=== PATIENT | female | born 1960 | race Two or more races ===

== ENCOUNTER → 2017-02-08 | Outpatient (CLI) | payer OTHER ==
[2016-09-14 08:40] VITALS: BP 140/68
[~2017-02-08] MED LIST: CYCL10TA2 PO; NAPR250T2 PO
--- NOTE | 2017-02-08 10:00 | RAD ---
DATE: 02/08/2017 EXAM: DIGITAL SCREEN BILAT W/CAD HISTORY: Routine screening COMPARISON: 01/31/2016 This study was interpreted with the benefit of Computerized Aided Detection (CAD). FINDINGS: There are scattered fibroglandular densities in the breasts. An unchanged cluster of small lymph node type densities is again noted in the anterolateral aspect of the right breast. No new or enlarging breast densities are seen. Minimal benign type calcification is present. No suspicious microcalcifications have developed. IMPRESSION: Stable mammograms without evidence of malignancy. BI-RADS CATEGORY: 2 BENIGN FINDING(S) RECOMMENDED FOLLOW-UP: 12M 12 MONTH FOLLOW-UP PQRS compliance statement: Patient information was entered into a reminder system with a target due date for the next mammogram. Mammography is a sensitive method for finding small breast cancers, but it does not detect them all and is not a substitute for careful clinical examination. A negative mammogram does not negate a clinically suspicious finding and should not result in delay in biopsying a clinically suspicious abnormality. "Our facility is accredited by the [employer] Mammography Program."
== END | disposition home or self-care (01) ==
LOC: MAMMO 08:58
PROVIDERS: ATTEND Internal Medicine
DX: Z12.31 Encounter for screening mammogram for malignant neoplasm of breast (principal)
CPT/HCPCS: G0202; 77067

== ENCOUNTER → 2017-04-22 | Outpatient (CLI) | payer OTHER ==
[2016-09-14 08:40] VITALS: BP 140/68
--- NOTE | 2017-04-22 10:11 | RAD ---
Abdominal ultrasound, 04/22/2017: History: Elevated liver function test The gallbladder is within normal limits in size. There is no sonographic evidence of cholelithiasis. The gallbladder villarreal are not thickened. No bile duct dilatation is seen. The liver is enlarged measuring 22 cm in craniocaudad extent. It demonstrates generalized increased echogenicity, most commonly due to fatty change. No hepatic mass is identified. The pancreas was largely obscured by overlying bowel. The spleen is of normal size. No renal abnormality is detected. The abdominal aorta is of normal caliber. There is atherosclerotic plaquing. The visualized portions of the inferior vena cava are unremarkable. No free fluid is evident in the abdomen. IMPRESSION: 1. Hepatomegaly with evidence of hepatic steatosis. 2. No acute abdominal abnormality is detected.
== END | disposition home or self-care (01) ==
LOC: US 06:18
PROVIDERS: ATTEND Internal Medicine
DX: K76.0 Fatty (change of) liver, not elsewhere classified (principal); R16.0 Hepatomegaly, not elsewhere classified; I10 Essential (primary) hypertension; E78.5 Hyperlipidemia, unspecified; E03.8 Other specified hypothyroidism
CPT/HCPCS: 76700

== ENCOUNTER 2017-06-25 06:42 | Outpatient (CLI) | payer OTHER ==
[2017-06-25] VITALS (11 sets, daily range): BP systolic 95–121; BP diastolic 60–77
[~2017-06-25] VITALS: Ht 157.5 cm; Wt 86.6 kg
[2017-06-25] MEDS ORDERED: VITA400C36 PO (07:14)
[2017-06-25] MEDS ORDERED: SIMV20TA3 PO (07:14)
[2017-06-25] MEDS ORDERED: LEVO25TA4 PO (07:14)
[2017-06-25] MEDS ORDERED: TRIA1TAB3 PO (07:14)
[2017-06-25 07:21] LABS: BASO # 0.1 x10^3/uL (0.0-0.2); BASO % 1 % (0-3); EOS % 4 % (0-3); HEMATOCRIT 42.9 % (36.0-47.0); HEMOGLOBIN 14.4 g/dL (12.0-15.5); LYMPH # 3.4 x10^3/uL (1.0-4.8); LYMPH % 33 % (24-48); MEAN CORPUSCULAR HEMOGLOBIN 30 pg (25-35); MEAN CORPUSCULAR HGB CONC 34 g/dL (31-37); MEAN CORPUSCULAR VOLUME 89 fL (79-100); MONO % 8 % (0-9); NEUT % 54 % (31-73); PLATELET COUNT 233 x10^3/uL (140-400); RED BLOOD COUNT 4.84 x10^6/uL (3.50-5.40); RED CELL DISTRIBUTION WIDTH 13.2 % (11.5-14.5); WHITE BLOOD COUNT 10.4 x10^3/uL (4.0-11.0)
[2017-06-25 07:30] LABS: PROTHROMBIN TIME PATIENT 12.2 SEC (11.7-14.0)
[2017-06-25] MEDS ORDERED: LIDOCAINE 1% / SOD BICARB 8.4% 20 ML VIAL. IJ ONE ×2 (07:50→08:45)
[2017-06-25] MEDS ORDERED: GELATIN SPONGE SIZE 12-7MM SPONGE. ONE (07:55)
[2017-06-25] MEDS ORDERED: fentaNYL PF VIAL 100 MCG/2 ML VIAL ONE (08:22)
[2017-06-25] MEDS ORDERED: MIDAZOLAM HCL/PF 2 MG/2 ML VIAL. ONE (08:22)
[2017-06-25] MEDS ORDERED: MIDAZOLAM HCL/PF 2 MG/2 ML VIAL. IV ONE (08:45)
[2017-06-25] MEDS ORDERED: fentaNYL PF VIAL 100 MCG/2 ML VIAL IV ONE (08:45)
--- NOTE | 2017-06-25 11:55 | RAD ---
Ultrasound-guided biopsy of the left hepatic lobe 06/25/2017 Indication: Hepatic steatosis Discussion: The risks and benefits of the procedure including limited to bleeding, including life-threatening bleeding, pneumothorax, and bowel injury were discussed the patient. Informed consent was obtained. The patient was brought to the interventional suite and placed in the supine position. A timeout procedure was performed. Ultrasound evaluation of the liver demonstrated a left hepatic lobe amenable percutaneous biopsy. 1% lidocaine without epinephrine was administered for local anesthesia to the skin and subcutaneous tissues. A 17-gauge guiding needle was advanced into the left hepatic lobe. 3 x 18-gauge core biopsy samples were obtained. Gelfoam embolization of the biopsy tract was performed prior to removal of the guiding needle. Annual pressures over several minutes. Repeat ultrasound performed demonstrating no hematoma or other complication. Patient tolerated the procedure well. Procedures performed under conscious sedation including continuous cardiopulmonary monitoring via a dedicated sedation nurse. Sedation time: 20 minutes Impression: Successful nontargeted, ultrasound-guided biopsy of the liver
== END 2017-06-25 11:00 | disposition home or self-care (01) ==
LOC: INTRAD 06:42
PROVIDERS: ATTEND Internal Medicine Gastroenterology
DX: K76.0 Fatty (change of) liver, not elsewhere classified (principal); E78.00 Pure hypercholesterolemia, unspecified; Z72.89 Other problems related to lifestyle
CPT/HCPCS: 36415; 47000; 76942; 85027; 85610; 99152; C1887; J2250; J3010; 99153

== ENCOUNTER → 2018-02-09 | Outpatient (CLI) | payer OTHER | END | disposition home or self-care (01) | LOC: MAMMO 09:49 | DX: Z12.31 Encounter for screening mammogram for malignant neoplasm of breast (principal) | CPT/HCPCS: 77067 ==

== ENCOUNTER → 2019-03-15 | Outpatient (CLI) | payer OTHER ==
[2017-06-25 10:22] VITALS: BP 104/65
[~2019-03-15] MED LIST changes: +LEVO25TA4 PO; -NAPR250T2 PO; +NAPR250T6 PO; +SIMV20TA3 PO; +TRIA1TAB3 PO; +VITA400C36 PO
--- NOTE | 2019-03-15 09:13 | RAD ---
DATE: 03/15/2019 EXAM: MAMMO BRIDGETTE SCREENING BILATERAL HISTORY: Routine screening COMPARISON: 02/09/2018 This study was interpreted with the benefit of Computerized Aided Detection (CAD). Breast Density: SCATTERED The breast parenchyma shows scattered fibroglandular densities. Breast parenchyma level B. FINDINGS: 2-D and 3-D tomosynthesis imaging was performed in CC and MLO projections. There is an unchanged cluster of 2 small intramammary lymph node type densities in the lateral aspect of the right breast. No new or enlarging breast densities are seen. No suspicious microcalcifications are evident. IMPRESSION: Stable mammograms without evidence of malignancy. BI-RADS CATEGORY: 2 BENIGN FINDING(S) RECOMMENDED FOLLOW-UP: 12M 12 MONTH FOLLOW-UP PQRS compliance statement: Patient information was entered into a reminder system with a target due date for the next mammogram. Mammography is a sensitive method for finding small breast cancers, but it does not detect them all and is not a substitute for careful clinical examination. A negative mammogram does not negate a clinically suspicious finding and should not result in delay in biopsying a clinically suspicious abnormality. "Our facility is accredited by the [employer] Mammography Program."
== END | disposition home or self-care (01) ==
LOC: MAMMO 08:04
PROVIDERS: ATTEND Internal Medicine
DX: Z12.31 Encounter for screening mammogram for malignant neoplasm of breast (principal)
CPT/HCPCS: 77063; 77067

== ENCOUNTER → 2019-08-24 | Outpatient (CLI) | payer OTHER ==
[2017-06-25 10:22] VITALS: BP 104/65
--- NOTE | 2019-08-24 12:00 | RAD ---
CHEST PA LATERAL History: Chest wall pain Comparison: 09/21/2009 frontal view of the chest. Findings: The cardiomediastinal silhouette is normal. Pulmonary vasculature is normal. The lungs are clear. No pleural effusion or pneumothorax is seen. There is no acute bone abnormality. IMPRESSION: No acute cardiopulmonary process. Electronically signed by: Hung Kuhn MD (08/24/2019 11:57 AM) [facility]
== END | disposition home or self-care (01) ==
LOC: RAD 10:58
PROVIDERS: ATTEND Internal Medicine
DX: R07.89 Other chest pain (principal)
CPT/HCPCS: 71046

== ENCOUNTER → 2019-09-07 | Outpatient (CLI) | payer OTHER ==
[2017-06-25 10:22] VITALS: BP 104/65
[~2019-09-07] MED LIST changes: +REGADENOSON 0.4 MG/5 ML DISP.SYRIN. IV ONE
--- NOTE | 2019-09-11 11:24 | RAD ---
MR#: [id number] Date of Study: 09/07/2019 Ordering Physician: KELSEA DUNBAR Referring Physician: LU SANTANA Tech: RT Rupesh Stovall) (N) APPROVED REPORT Test Type: Pharmacological Stress Nurse/Tech: Marisela BUSTAMANTE Test Indications: Chest Pain Cardiac History: See EMR Medications: See EMR Medical History: DM, X-smoker quit 5 yrs ago, See EMR Resting ECG: SB Resting Heart Rate: 55 bpm Resting Blood Pressure: 114/66mmHg Pretest Chest Pain: No chest pain Nurse/Tech Notes Lungs CTA, Heart tones regular. Consent: The procedure was explained to the patient in lay terms. Informed consent was witnessed. Bay eout was entered into [employer]. History and Stress Test performed by RT Rupesh Haley) (N) Pharm. Details Pharmacologic stress testing was performed using 0.4mg per 5ml of regadenoson given intravenously ove r 7-10 seconds. Stress Symptoms No chest pain or symptoms. POST EXERCISE Reason for Termination: Infusion complete Max HR: 88 bpm Max Blood Pressure: 114/63mmHg Blood Pressure response to exercise: Normal blood pressure response during stress. Heart Rate response to exercise: WNL Chest Pain: No. Arrhythmia: No. ST Change: No. INTERPRETATION Stress EKG Conclusion: Baseline EKG showed sinus rhythm. No ischemic changes at peak stress. No arr hythmias. Imaging Protocol IMAGE PROTOCOL: Rest Tc-99m/stress Tc-99m 1 day Rest: Stress: Viability: Radiopharm.Tc99m ThqwbtpotWy41c Sestamibi Mpfl17bQh 30.1mCi Duration 15min. 15min. Img Date 09/07/2019 09/07/2019 Inj-Img Bvmd58qpt. 60min. Rest Admin Site:IV - Left ForearmAdministrator:RT Rupesh Haley)(N) Stress Admin Site: IV - Left ForearmAdministrator: RT Rupesh Haley)(N) STRESS DATA End Diast. Vol.85.0mlLVEDV index BSA44.0ml End Syst. Vol.25.0mlLVESV index BSA13.0ml Myocardial Hnxl780.0gEject. Ikzyndbn68.0% Stress Scores Regional WT0.00Summed WT4.00 Regional WM0.00Summed WM0.00 Study quality was good. Left Ventricular size was Normal at Rest and Stress. Lung uptake was . Left Ventricular ejection fraction is 71%. The rest and stress images show normal perfusion, normal contraction and thickening. LV Perf. Quant 17 Seg. SSS2.00 17 Seg. SRS2.00 17 Seg. SDS1.00 Stress Defect Extent (% LAD)0.00Rest Defect Extent (% LAD)0.00Rev. Defect Extent (% LAD)0.00 Stress Defect Extent (% LCX) 0.00Rest Defect Extent (% LCX)7.50Rev. Defect Extent (% LCX)0.00 Stress Defect Extent (% RCA)0.00Rest Defect Extent (% RCA)0.00Rev. Defect Extent (% RCA)0.00 Stress Defect Extent (% TONNY)0.20Rest Defect Extent (% TONNY)1.70Rev. Defect Extent (% TONNY)0.00 Conclusion 1. Regadenoson cardioisotope stress test did not show any evidence of ischemia or infarct. 2. Normal left ventricular systolic function with ejection fraction calculated at 71%. 3. Low risk for cardiac events. Signed by : Kelsea Dunbar Electronically Approved : 09/07/2019 13:25:28
== END | disposition home or self-care (01) ==
LOC: NM 09:33
PROVIDERS: ATTEND Internal Medicine Cardiovascular Disease
DX: R07.9 Chest pain, unspecified (principal)
CPT/HCPCS: 78452; 93017; A9500; J2785

== ENCOUNTER → 2019-09-21 | Outpatient (CLI) | payer OTHER ==
[2017-06-25 10:22] VITALS: BP 104/65
[~2019-09-21] MED LIST changes: -REGADENOSON 0.4 MG/5 ML DISP.SYRIN. IV ONE
--- NOTE | 2019-09-21 12:23 | CARD ---
MR#: [id number] Date of Study: 09/21/2019 Ordering Physician: KELSEA DUNBAR, Referring Physician: Rocio SANTANA: Sera Olivarez APPROVED REPORT EXAM: Two-dimensional and M-mode echocardiogram with Doppler and color Doppler. Other Information Quality : Average INDICATION Chest Pain Murmur 2D DIMENSIONS RVDd3.0 (2.9-3.5cm)Left Atrium(2D)3.3 (1.6-4.0cm) IVSd0.8 (0.7-1.1cm)Aortic Root(2D)2.2 (2.0-3.7cm) LVDd4.6 (3.9-5.9cm)LVOT Diameter1.9 (1.8-2.4cm) PWd0.9 (0.7-1.1cm)LVDs2.6 (2.5-4.0cm) FS (%) 44.4 %SV73.9 ml Aortic Valve AoV Peak Guerrero.131.5cm/sAoV VTI30.0cm AO Peak GR.6.9mmHgLVOT Peak Guerrero.88.9cm/s AO Mean GR.4mmHgAVA (VMAX)1.86cm2 Mitral Valve MV E Dxerqgsv09.2cm/sMV E Peak Gr.4mmHg MV DECEL [id number] A Vwibfbls71.0cm/s MV E Mean Gr.1mmHgE/A Ratio2.3 Pulmonary Valve PV Peak Lgbnrxqm11.8cm/s Tricuspid Valve TR P. Qjzjwylz126oj/sRAP RZFBHPYM9hzZz TR Peak Gr.15xuByDCKN77rzUy Pulmonary Vein S1 Lohmkrcd16.8cm/sD2 Hfhlmekt92.1cm/s LEFT VENTRICLE The left ventricle is normal size. There is normal left ventricular wall thickness. The left ventricu lar systolic function is normal and the ejection fraction is within normal range. The Ejection Fracti on is 60-65%. There is normal LV segmental wall motion. The left ventricular diastolic function and f illing is normal for age. RIGHT VENTRICLE The right ventricle is normal size. There is normal right ventricular wall thickness. The right ventr icular systolic function is normal. ATRIA The left atrium size is normal. The right atrium size is normal. The interatrial septum is borderline aneurysmal. AORTIC VALVE The aortic valve is calcified but opens well. The aortic valve is normal in structure and function. D oppler and Color Flow revealed no significant aortic regurgitation. There is no significant aortic va lvular stenosis. MITRAL VALVE The mitral valve is thickened but opens well. There is no evidence of mitral valve prolapse. There is no mitral valve stenosis. Doppler and Color-flow revealed trace mitral regurgitation. TRICUSPID VALVE The tricuspid valve is normal in structure and function. Doppler and Color Flow revealed trace to mil d tricuspid regurgitation with an estimated PAP of 19 mmHg. There is no tricuspid valve stenosis. PULMONIC VALVE The pulmonic valve was not well visualized. Doppler and Color Flow revealed no pulmonic valvular regu rgitation. GREAT VESSELS The aortic root is normal in size. The ascending aorta is normal in size. The IVC is normal in size a nd collapses >50% with inspiration. PERICARDIAL EFFUSION There is no pleural effusion. There is no evidence of significant pericardial effusion. Critical Notification Critical Value: No <Conclusion> The left ventricle is normal size. The left ventricular systolic function is normal and the ejection fraction is within normal range. The Ejection Fraction is 60-65%. There is no significant aortic valvular stenosis. Doppler and Color Flow revealed no significant aortic regurgitation. Doppler and Color-flow revealed trace mitral regurgitation. Doppler and Color Flow revealed trace to mild tricuspid regurgitation with an estimated PAP of 19 mmH g. Signed by : Edvin Baron MD Electronically Approved : 09/21/2019 12:23:10
== END | disposition home or self-care (01) ==
LOC: ECHO 10:56
PROVIDERS: ATTEND Internal Medicine Cardiovascular Disease
DX: I08.2 Rheumatic disorders of both aortic and tricuspid valves (principal)
CPT/HCPCS: 93306

== ENCOUNTER → 2020-05-27 | Outpatient (CLI) | payer OTHER ==
[2017-06-25 10:22] VITALS: BP 104/65
[~2020-05-27] MED LIST changes: +SIMV20TA18 PO; -SIMV20TA3 PO; +VITA-8 PO; -VITA400C36 PO
--- NOTE | 2020-05-27 08:31 | RAD ---
ABDOMEN COMPLETE Realtime grayscale images of the abdomen with color and pulsed doppler utilized as appropriate. History: Reason: fatty liver / Spl. Instructions: / History: Comparison: None. Findings: The liver measures 20.1 cm and demonstrates increased echogenicity. No intrahepatic biliary ductal dilatation or mass is seen. No gallstones, pericholecystic fluid, or gallbladder wall thickening are seen. The common bile duct is normal in diameter and measures 0.4 cm. Portal Vein flow is hepatopetal. The pancreas is normal in appearance, although the tail is not well visualized. The aorta and IVC are normal diameter where visualized. The right kidney is normal in appearance, measuring 11.6 cm in length. The left kidney is normal in appearance, measuring 12.1 cm in length. No hydronephrosis or perinephric fluid are seen bilaterally. The spleen measures 10.8 cm. Calcified splenic granulomas. Impression: Hepatomegaly and hepatic steatosis. Electronically signed by: Nam Perez MD (05/27/2020 8:28 AM) [id number]
--- NOTE | 2020-05-27 16:53 | RAD ---
BILATERAL SCREENING MAMMOGRAM, 3-D History: Routine screening. Comparison: 11/15/2014, 01/31/2016, 02/08/2017, 02/09/2018, 03/15/2019. Technique: MLO and CC digital tomosynthesis (3D) images obtained. Radiologist reviewed these images on dedicated workstation. Findings: Breast Tissue Density B : There are scattered areas of fibroglandular density. There are no dominant masses, suspicious microcalcifications, or architectural distortion. IMPRESSION: No mammographic evidence of malignancy. Recommend routine screening. BI-RADS category 1: Negative. The images were reviewed with computer-aided detection. Patient information is entered into reminder system with a target due date for the next screening mammogram. Mammography is the most sensitive method for finding small breast cancers, but it does not detect them all and is not a substitute for careful clinical examination. A negative mammogram does not negate a clinically suspicious finding and should not result in delay in biopsying a clinically suspicious abnormality. "Our facility is accredited by the [employer] Mammography [employer]." Electronically signed by: Hung Khun MD (05/27/2020 4:50 PM) [facility]
== END | disposition home or self-care (01) ==
LOC: US 06:58
PROVIDERS: ATTEND Internal Medicine
DX: Z12.31 Encounter for screening mammogram for malignant neoplasm of breast (principal); K76.0 Fatty (change of) liver, not elsewhere classified; R16.0 Hepatomegaly, not elsewhere classified
CPT/HCPCS: 76700; 77063; 77067

== ENCOUNTER → 2021-05-27 | Outpatient (CLI) | payer OTHER ==
[2017-06-25 10:22] VITALS: BP 104/65
[~2021-05-27] MED LIST changes: +NAPR-699 PO; -NAPR250T6 PO
--- NOTE | 2021-05-27 16:41 | RAD ---
EXAM: BILATERAL DIGITAL 3D SCREENING MAMMOGRAPHY. HISTORY: Routine mammographic screening. TECHNIQUE: Bilateral digital 3D and tomographic images were obtained in CC and MLO projections. Compu ter-aided detection was applied. COMPARISON: 05/27/2020, 03/15/2019, 02/09/2018. COMPOSITION: B. There are scattered areas of fibroglandular density. FINDINGS: There are no suspicious masses, microcalcifications or architectural distortion. The parenc hymal pattern is stable. Mild architectural distortion in a right subareolar position is stable chron ically and likely benign. BI-RADS CATEGORY 2: Benign. RECOMMENDATION: 1. Routine screening mammography in one year. If mammography demonstrates dense breast tissue (heterogenously dense or extremely dense, category C or D), which could hide abnormalities, and if other risk factors for breast cancer have been identifi ed, supplemental screening tests that may be suggested by the ordering physician may be of benefit. D ense breast tissue, in and of itself, is a relatively common condition. Therefore, this information i s not provided to cause undue concern, but rather to raise awareness and to promote discussion with t he referring physician regarding the presence of other risk factors, in addition to dense breast tiss ue. The results of this mammography examination is provided to the patient and referring physician. T he patient should contact their referring physician if any questions or concerns exist regarding this report. PQRS compliance statement - Patient information was entered into a reminder system with a target due date for the next mammogram. "Our facility is accredited by the [employer] Mammography Program." Electronically signed by: Baljit Carty MD (05/27/2021 4:39 PM) [email or web address]
== END ==
LOC: MAMMO 15:40
PROVIDERS: ATTEND Internal Medicine
DX: Z12.31 Encounter for screening mammogram for malignant neoplasm of breast (principal)
CPT/HCPCS: 77063; 77067